=== PATIENT | female | born 1975 | race Caucasian/White ===

== ENCOUNTER 2016-11-29 13:15 | Outpatient (RCR) | payer OTHER ==
[~2016-11-29 13:15] MED LIST: AMBIEN 5MG TABLE5 MG PO; MEDROL 4MG DOSPA4 MG PO; NAPROSYN500 MG PO; PROVENTIL0.09 MG/A1 IH; SINGULAIR 110 MG/TAB PO; SINGULAIR10 MG PO; TOPAKAX; ZOLOFT 100MG100 MG PO; ZOLOFT50 MG PO; ZYRTEC 10MG10 MG PO; ZYRTEC1 MG/ML PO
== END 2017-01-15 | disposition still patient (30) ==
LOC: WSPT
DX: I89.0 Lymphedema, not elsewhere classified (principal)

== ENCOUNTER 2017-04-10 08:45 | Outpatient (RCR) | payer OTHER | END 2017-04-18 | disposition home or self-care (01) | LOC: WSPT | DX: I89.0 Lymphedema, not elsewhere classified (principal) ==

== ENCOUNTER 2017-07-17 09:15 | Outpatient (RCR) | payer OTHER | END 2017-07-23 | disposition home or self-care (01) | LOC: WSPT | DX: I89.0 Lymphedema, not elsewhere classified (principal) ==

== ENCOUNTER 2017-10-23 09:30 | Outpatient (RCR) | payer OTHER | END 2017-10-31 | LOC: WSPT | DX: I89.0 Lymphedema, not elsewhere classified (principal) ==

== ENCOUNTER 2018-03-12 09:00 | Outpatient (RCR) | payer OTHER | END 2018-03-13 | LOC: WSPT | DX: I89.0 Lymphedema, not elsewhere classified (principal) ==

== ENCOUNTER 2018-10-31 09:45 | Outpatient (RCR) | payer OTHER | END 2018-11-11 | disposition home or self-care (01) | LOC: WSPT | DX: I89.0 Lymphedema, not elsewhere classified (principal) ==

== ENCOUNTER 2018-12-29 00:34 | Emergency (ER) | payer OTHER ==
[~2018-12-29] VITALS: Ht 144.8 cm; Wt 72.7 kg
[2018-12-29 00:40] VITALS: TEMP 97.9
[2018-12-29] MEDS ORDERED: PRISTIQ 50 MG T50 MG PO (01:11)
[2018-12-29 03:23] VITALS: BP 152/90; PULSE 96
== END 2018-12-29 03:23 | disposition home or self-care (01) ==
LOC: COL.ER 00:34
DX: S09.90XA Unspecified injury of head, initial encounter (principal); S01.01XA Laceration without foreign body of scalp, initial encounter; W10.9XXA Fall (on) (from) unspecified stairs and steps, initial encounter; Y92.009 Unspecified place in unspecified non-institutional (private) residence as the place of occurrence of the external cause

== ENCOUNTER 2019-01-01 07:50 | Emergency (ER) | payer OTHER ==
[~2019-01-01 07:50] MED LIST changes: +PRISTIQ 50 MG T50 MG PO
[2019-01-01 07:59] VITALS: PULSE 96
== END 2019-01-01 08:03 | disposition home or self-care (01) ==
LOC: COL.ER 07:50
DX: Z48.02 Encounter for removal of sutures (principal)

== ENCOUNTER 2019-02-25 09:30 | Outpatient (RCR) | payer OTHER | END 2019-03-03 | disposition home or self-care (01) | LOC: WSPT | DX: I89.0 Lymphedema, not elsewhere classified (principal) ==

== ENCOUNTER 2019-05-20 13:00 | Outpatient (RCR) | payer OTHER | END 2019-06-09 | LOC: WSPT | DX: I89.8 Other specified noninfective disorders of lymphatic vessels and lymph nodes (principal) ==

== ENCOUNTER 2019-09-12 14:30 | Outpatient (RCR) | payer OTHER | END 2019-09-22 | disposition home or self-care (01) | LOC: WSPT | DX: I89.0 Lymphedema, not elsewhere classified (principal) ==

== ENCOUNTER 2020-03-31 10:00 | Outpatient (RCR) | payer OTHER | END 2020-04-05 | disposition home or self-care (01) | LOC: WSPT | DX: I89.0 Lymphedema, not elsewhere classified (principal) ==

== ENCOUNTER 2020-08-05 14:45 | Outpatient (RCR) | payer OTHER | END 2020-08-10 | disposition home or self-care (01) | LOC: WSPT | DX: I89.9 Noninfective disorder of lymphatic vessels and lymph nodes, unspecified (principal) ==

== ENCOUNTER 2020-11-12 11:15 | Outpatient (RCR) | payer OTHER | END 2020-11-17 | disposition home or self-care (01) | LOC: WSPT | DX: I89.9 Noninfective disorder of lymphatic vessels and lymph nodes, unspecified (principal) ==

== ENCOUNTER 2020-11-24 15:52 | Outpatient (RCR) | payer OTHER | END 2020-11-29 | disposition still patient (30) | LOC: WSPT | DX: I89.9 Noninfective disorder of lymphatic vessels and lymph nodes, unspecified (principal) ==

== ENCOUNTER 2021-03-02 13:00 | Outpatient (RCR) | payer OTHER | END 2021-03-08 | disposition still patient (30) | LOC: WSPT | DX: I89.9 Noninfective disorder of lymphatic vessels and lymph nodes, unspecified (principal) ==

== ENCOUNTER 2021-06-13 09:45 | Outpatient (RCR) | payer OTHER | END 2021-06-14 | LOC: WSPT | DX: I89.0 Lymphedema, not elsewhere classified (principal) ==

== ENCOUNTER 2021-09-14 10:30 | Outpatient (RCR) | payer OTHER | END 2021-09-20 | disposition home or self-care (01) | LOC: WSPT | DX: I89.0 Lymphedema, not elsewhere classified (principal) ==

== ENCOUNTER 2021-11-11 10:00 | Outpatient (RCR) | payer OTHER | END 2021-11-25 | disposition home or self-care (01) | LOC: WSPT | DX: I89.0 Lymphedema, not elsewhere classified (principal) ==

== ENCOUNTER 2022-01-11 14:00 | Outpatient (RCR) | payer OTHER | END 2022-01-23 | disposition home or self-care (01) | LOC: WSPT | DX: I89.0 Lymphedema, not elsewhere classified (principal) ==

== ENCOUNTER 2022-02-14 13:30 | Outpatient (RCR) | payer OTHER | END 2022-02-23 | disposition home or self-care (01) | LOC: WSPT | DX: I89.0 Lymphedema, not elsewhere classified (principal) ==

== ENCOUNTER 2022-03-23 15:45 | Outpatient (RCR) | payer OTHER | END 2022-03-25 | disposition home or self-care (01) | LOC: WSPT | DX: I89.0 Lymphedema, not elsewhere classified (principal) ==

== ENCOUNTER 2022-04-20 11:15 | Outpatient (RCR) | payer OTHER | END 2022-04-25 | disposition home or self-care (01) | LOC: WSPT | DX: I89.0 Lymphedema, not elsewhere classified (principal) ==

== ENCOUNTER → 2022-05-25 | Outpatient (RCR) | payer OTHER | END | disposition home or self-care (01) | LOC: WSPT | DX: I89.0 Lymphedema, not elsewhere classified (principal) ==

== ENCOUNTER 2022-06-09 10:43 | Outpatient (RCR) | payer OTHER | END 2022-06-25 | disposition home or self-care (01) | LOC: WSPT | DX: I89.0 Lymphedema, not elsewhere classified (principal) ==

== ENCOUNTER 2022-06-27 09:09 | Outpatient (RCR) | payer OTHER | END 2022-07-26 | disposition home or self-care (01) | LOC: WSPT | DX: I89.0 Lymphedema, not elsewhere classified (principal) ==

== ENCOUNTER 2024-07-09 16:15 | Outpatient (RCR) | payer OTHER | END 2024-07-26 | disposition home or self-care (01) | LOC: MKS.ESL.PT | DX: M43.16 Spondylolisthesis, lumbar region (principal); M47.26 Other spondylosis with radiculopathy, lumbar region ==